=== PATIENT | male | born 1990 | race African-American/Black ===

== ENCOUNTER 2016-04-28 16:25 | Emergency (ER) | payer SELFPAY ==
[~2016-04-28] VITALS: Ht 175.3 cm; Wt 135.0 kg
[~2016-04-28 16:25] MED LIST: ALBU6.7H INH; ULTR50TA PO; ZOFR4TAB3 SL
[2016-04-28 16:29] VITALS: BP 138/84; PULSE 104; RESP 18; TEMP 98; O2SAT 96
[2016-04-28] MEDS ORDERED: ALBU0.08 NEB (17:03)
[2016-04-28] MEDS ORDERED: MUPI2OIN TOPICAL (17:11)
--- NOTE | 2016-04-28 17:11 | PD ---
HPI Chief Complaint: Injury Time Seen by Provider: 17:10 Travel History International Travel<30 days: No Contact w/Intl Traveler<30days: No Traveled to known affect area: No History of Present Illness HPI 26-year-old male with no significant medical history presents to emergency department for evaluation right great toe pain. Patient states that he removed a part of his ingrown toenail and the area has been painful since. No erythema or edema. Pain is only when he pushes on the area. No fever or chills. No other symptoms to report. PFSH Past Medical History Asthma: Yes Cardiovascular Problems: Yes (palpitations) Diminished Hearing: No Immunizations Current: Yes Tetanus Vaccination: < 5 Years Influenza Vaccination: No Past Surgical History Surgical History: No Previous Surgery Social History Alcohol Use: No Tobacco Use: No Substance Use: No Allergies-Medications (Allergen,Severity, Reaction): Coded Allergies: Tylenol (Verified Allergy, Severe, Hives, 04/28/16) Reported Meds & Prescriptions Reported Meds & Active Scripts Active Mupirocin Topical (Mupirocin) 2 % Oint 1 Applic TOPICAL BID Reported Albuterol Neb (Albuterol Sulfate) 2.5 Mg/3 Ml Neb 2.5 Mg NEB Q4HR NEB PRN Review of Systems Except as stated in HPI: all other systems reviewed are Neg Physical Exam Narrative GENERAL: Well-nourished, well-developed patient in no acute distress SKIN: Warm and dry. Without erythema or edema. Partially avulsed toenail of the right great toe on the lateral aspect. No erythema or edema. Area is tender to palpate. HEAD: Normocephalic. EYES: No scleral icterus. No injection or drainage. NECK: Supple, trachea midline. No JVD or lymphadenopathy. CARDIOVASCULAR: Regular rate and rhythm without murmurs, gallops, or rubs. MUSCULOSKELETAL: No cyanosis, or edema. Patient has full flexion extension of the affected toe. No ulcerations in sensation of the affected digit. Data Data Last Documented VS Vital Signs Date Time Temp Pulse Resp B/P Pulse Ox O2 Delivery O2 Flow Rate FiO2 04/28/16 16:59 98 18 99 04/28/16 16:29 98.0 138/84 Room Air MDM Medical Decision Making Medical Screen Exam Complete: Yes Emergency Medical Condition: Yes Medical Record Reviewed: Yes Differential Diagnosis Ingrown toenail versus avulsed toenail versus partially avulsed toenail versus cellulitis Narrative Course 26-year-old male presents to emergency department for evaluation right great toe pain. Patient has avulsed part of his ingrown toenail. The area does not appear to be infected. I counseled him on care. He'll be discharged and encouraged to follow-up with nuclear monitoring technician. He agrees to return immediately with any acute worsening symptoms. Diagnosis Primary Impression: Ingrown nail of great toe of right foot Referrals: [facility] Primary Care Physician Patient Instructions: General Instructions, Ingrown Nail (ED) Additional Instructions: Epson salts 62-3 times a day All over the nuclear monitoring technician Return immediately to the emergency department with any acute worsening of symptoms Med/Other Pt SpecificInfo: Prescription(s) given Scripts Mupirocin Topical 2 % Oint1 Applic TOPICAL BID #22 GM Ref 0 Prov:Donna Mccallum 04/28/16 Disposition: 01 DISCHARGE HOME Condition: Stable Donna Mccallum Apr 28, 2016 17:11
== END 2016-04-28 17:58 | disposition home or self-care (01) ==
LOC: NETRI 16:25
DX: L60.0 Ingrowing nail (principal); J45.909 Unspecified asthma, uncomplicated
CPT/HCPCS: 99283

== ENCOUNTER 2017-10-11 02:30 | Observation (INO) ==
--- NOTE | 2017-10-11 03:07 | ED ---
HPI General Chief Complaint: Chest Pain Stated Complaint: chest pain, sob Time Seen by Provider: 10/11/17 03:03 History of Present Illness HPI narrative: 27-year-old male presents to the emergency department by private transportation for complaint of sudden onset chest pain just prior to arrival to the emergency department. Initial pain was 10/10 intensity tight squeeze and nature associated with shortness of breath no sweats no nausea no vomiting and no referred neck jaw back shoulder arm pain. Patient denies abdominal pain. Patient states he used his albuterol rescue inhaler for his history of asthma and symptoms seemed to dissipate. Severe pain lasted less than 30 seconds. Patient states pain is currently 5-6/10 intensity and still slightly tight. Patient continues to deny any referred pain. Patient denies tobacco use substance use recent long distance travel. Patient states he was up and had just returned home from celebrating his brother's birthday when he noticed the symptoms. No prior history of similar chest pain. No family history of sudden or cardiac disease and patient did not have syncopal or near syncopal episode. Patient denies other concerns or complaints. Complete Quality Measures for STEMI Alert Patients Related Data Home Medications Medication Instructions Recorded Confirmed albuterol sulfate 2 puff INHALATION Q4-6H PRN 10/11/17 10/11/17 Allergies Allergy/AdvReac Type Severity Reaction Status Date / Time acetaminophen Allergy Severe Hives Unverified 11/17/16 00:55 Review of Systems Except as stated in HPI: all other systems reviewed are negative PMFSH Medical History Medical History Asthma (Acute) Surgical History Surgical History No history of previous surgery (Acute) Social History Social History Substance History: No History of Abuse Second Hand Smoke Exposure: No Smoking Status: Never smoker How Often Do You Have a Drink Containing Alcohol: Monthly or less Hx Recent Travel: No Recent Travel in [facility] within the Last 8 Weeks: No Recent Out of Country Travel within the Last 8 Weeks: No Immunization History Tetanus Immunization: Unsure Exam Narrative Exam Narrative: GENERAL: Well-developed well-nourished morbidly obese male in no acute distress no respiratory distress GCS 15 SKIN: Focused skin assessment warm/dry. HEAD: Atraumatic. Normocephalic. EYES: Pupils equal and round. No scleral icterus. No injection or drainage. ENT: No nasal bleeding or discharge. Mucous membranes pink and moist. NECK: Trachea midline. No JVD. CARDIOVASCULAR: Regular rate and rhythm. No murmur appreciated. Radial and dorsalis pedis pulses 2+ to palpation bilaterally RESPIRATORY: No accessory muscle use. Clear to auscultation. Breath sounds equal bilaterally. GASTROINTESTINAL: Abdomen soft, non-tender, nondistended. Hepatic and splenic margins not palpable. MUSCULOSKELETAL: No obvious deformities. No clubbing. No cyanosis. No edema. NEUROLOGICAL: Awake and alert. No obvious cranial nerve deficits. Motor grossly within normal limits. Normal speech. PSYCHIATRIC: Appropriate mood and affect; insight and judgment normal. Course Initial Documented Vital Signs Temperature 98.1 F 10/11/17 02:34 Pulse Rate 96 H 10/11/17 02:34 Respiratory Rate 18 10/11/17 02:34 Blood Pressure 151/69 H 10/11/17 02:34 Pulse Oximetry 99 10/11/17 02:34 Last Documented Vital Signs Temperature 98.1 F 10/11/17 02:34 Pulse Rate 105 H 10/11/17 11:17 Respiratory Rate 16 10/11/17 11:17 Blood Pressure 139/70 10/11/17 11:17 Pulse Oximetry 96 10/11/17 11:18 Medical Decision Making [facility] Narrative Medical decision making narrative: 27-year-old male presents to the emergency department for complaint of chest pain associated with shortness of breath nonradiating without near syncope or syncopal episode with EKG that shows sinus tachycardia rate [address] septal changes with possible Brugada type pattern with coving Saddleback ST changes in V2 no reciprocal ST segment depression or T-wave inversion. Patient's EKG discussed with on-call turntable engineer concurs this is not a STEMI. Patient placed on cardiac exercise specialist with continuous pulse oximetry IV access obtained specimens collected and sent for resulting patient administered aspirin 162 mg administered to be chewed and sublingual nitroglycerin 1. Differential Diagnosis Differential Diagnosis: Chest pain atypical chest pain PE ACS MA Medical Records Medical records reviewed: Yes I reviewed the patient's medical records. Lab Data Result diagrams: 10/11/17 03:00 10/11/17 03:00 Lab Results 10/11/17 10/11/17 10/11/17 Range/Units 03:00 03:00 03:00 WBC 11.6 H (4.0-11.0) th/mm3 RBC 4.91 (4.50-5.90) mil/mm3 Hgb 15.3 (13.0-17.0) gm/dL Hct 43.6 (39.0-51.0) % MCV 88.7 (80.0-100.0) fL MCH 31.2 (27.0-34.0) pg MCHC 35.2 (32.0-36.0) % RDW 13.6 (11.6-17.2) % Plt Count 255 (150-450) th/mm3 MPV 7.4 (7.0-11.0) fL Prelim Diff (Auto) Slide review pending Neut % (Auto) 34.8 (16.0-70.0) % Lymph % (Auto) 53.4 H (9.0-44.0) % Upson % (Auto) 7.0 (0.0-8.0) % Eos % (Auto) 3.8 (0.0-4.0) % Baso % (Auto) 1.0 (0.0-2.0) % Neut # (Auto) 4.0 (1.8-7.7) th/mm3 Lymph # (Auto) 6.2 H (1.0-4.8) th/mm3 Upson # (Auto) 0.8 (0.0-0.9) th/mm3 Eos # (Auto) 0.4 (0.0-0.4) th/mm3 Baso # (Auto) 0.1 (0.0-0.2) th/mm3 WBC Differential Manual diff final Seg Neuts % (Manual) 42 (16-70) % Lymphocytes % (Manual) 46 H (9-44) % Monocytes % (Manual) 8 (0-8) % Eosinophils % (Manual) 4 (0-4) % Abs Neuts (Manual) 4.9 (1.8-7.7) th/mm3 Differential Comment . Platelet Estimate Normal (Normal) Platelet Morphology Normal (Normal) RBC Morphology Normal (Normal) PT 10.7 (9.8-11.6) sec INR 1.1 Ratio APTT 25.8 (24.3-30.1) sec Sodium 140 (136-145) meq/L Potassium 3.3 L (3.5-5.1) meq/L Chloride 103 (98-107) meq/L Carbon Dioxide 28.6 (21.0-32.0) meq/L Anion Gap 8 (5-15) meq/L BUN 8 (7-18) mg/dL Creatinine 1.26 (0.60-1.30) mg/dL Estimated GFR 83 L (>89) mL/min Random Glucose 126 H (74-106) mg/dL Calcium 8.5 (8.5-10.1) mg/dL Magnesium 2.0 (1.5-2.5) mg/dL Total Creatine Kinase 428 H (39-308) U/L CK-MB (CK-2) 1.0 (0.5-3.6) ng/mL CK-MB (CK-2) % 0.2 (0.0-4.0) % Troponin I Less than 0.02 L (0.02-0.05) ng/mL 10/11/17 Range/Units 06:20 WBC (4.0-11.0) th/mm3 RBC (4.50-5.90) mil/mm3 Hgb (13.0-17.0) gm/dL Hct (39.0-51.0) % MCV (80.0-100.0) fL MCH (27.0-34.0) pg MCHC (32.0-36.0) % RDW (11.6-17.2) % Plt Count (150-450) th/mm3 MPV (7.0-11.0) fL Prelim Diff (Auto) Neut % (Auto) (16.0-70.0) % Lymph % (Auto) (9.0-44.0) % Upson % (Auto) (0.0-8.0) % Eos % (Auto) (0.0-4.0) % Baso % (Auto) (0.0-2.0) % Neut # (Auto) (1.8-7.7) th/mm3 Lymph # (Auto) (1.0-4.8) th/mm3 Upson # (Auto) (0.0-0.9) th/mm3 Eos # (Auto) (0.0-0.4) th/mm3 Baso # (Auto) (0.0-0.2) th/mm3 WBC Differential Seg Neuts % (Manual) (16-70) % Lymphocytes % (Manual) (9-44) % Monocytes % (Manual) (0-8) % Eosinophils % (Manual) (0-4) % Abs Neuts (Manual) (1.8-7.7) th/mm3 Differential Comment Platelet Estimate (Normal) Platelet Morphology (Normal) RBC Morphology (Normal) PT (9.8-11.6) sec INR Ratio APTT (24.3-30.1) sec Sodium (136-145) meq/L Potassium (3.5-5.1) meq/L Chloride (98-107) meq/L Carbon Dioxide (21.0-32.0) meq/L Anion Gap (5-15) meq/L BUN (7-18) mg/dL Creatinine (0.60-1.30) mg/dL Estimated GFR (>89) mL/min Random Glucose (74-106) mg/dL Calcium (8.5-10.1) mg/dL Magnesium (1.5-2.5) mg/dL Total Creatine Kinase 372 H (39-308) U/L CK-MB (CK-2) 1.0 (0.5-3.6) ng/mL CK-MB (CK-2) % 0.3 (0.0-4.0) % Troponin I Less than 0.02 L (0.02-0.05) ng/mL Imaging Data Radiologist's impression: ITS Impressions Chest X-Ray 10/11/17 02:56 CONCLUSION: 1. No acute cardiopulmonary disease. ECG Data Interpretation: EKG sinus tachycardia rate 105 Discharge Plan Discharge Disposition Patient Disposition: 01 Discharge Home Discharge Condition Condition: Good Discharge Order Discharge Orders: Discharge Order (Routine); Ordered 10/11/17 Ordered By: Rosa Ya Discharge Details Anticipated Discharge Date: 10/11/17 Physicians Team ED Provider: Kya Cisneros Primary Care Provider: Primary Care Vannesa Espinoza Attending Provider: Tayo Lopez Status ED Status: Left Department Discharge Information Discharge Date/Time: 10/11/17 11:45
[2017-10-11 03:14] LABS: Baso # (Auto) 0.1 th/mm3 (0.0-0.2); Eos # (Auto) 0.4 th/mm3 (0.0-0.4); Eos % (Auto) 3.8 % (0.0-4.0); Hematocrit 43.6 % (39.0-51.0); Hemoglobin 15.3 gm/dL (13.0-17.0); Lymph # (Auto) 6.2 th/mm3 (1.0-4.8); Lymph % (Auto) 53.4 % (9.0-44.0); Mean Corpuscular HGB Conc 35.2 % (32.0-36.0); Mean Corpuscular Hemoglobin 31.2 pg (27.0-34.0); Mean Corpuscular Volume 88.7 fL (80.0-100.0); Mean Platelet Volume 7.4 fL (7.0-11.0); Mono # (Auto) 0.8 th/mm3 (0.0-0.9); Neut % (Auto) 34.8 % (16.0-70.0); Platelet Count 255 th/mm3 (150-450); Red Blood Count 4.91 mil/mm3 (4.50-5.90); Red Cell Distribution Width 13.6 % (11.6-17.2); White Blood Count 11.6 th/mm3 (4.0-11.0)
[2017-10-11 03:25] LABS: Activated Partial Thrombo Time 25.8 sec (24.3-30.1); INR 1.1 Ratio; Prothrombin Time 10.7 sec (9.8-11.6)
[2017-10-11 03:34] LABS: Anion Gap 8 meq/L (5-15); Blood Urea Nitrogen 8 mg/dL (7-18); Calcium 8.5 mg/dL (8.5-10.1); Carbon Dioxide 28.6 meq/L (21.0-32.0); Chloride 103 meq/L (98-107); Creatine Kinase 428 U/L (39-308); Glomerular Filtration Rate 83 mL/min (>89); Glucose,Random 126 mg/dL (74-106); Sodium 140 meq/L (136-145)
[2017-10-11 03:35] LABS: Potassium 3.3 meq/L (3.5-5.1)
[2017-10-11 03:47] LABS: CKMB Percent 0.2 % (0.0-4.0)
[2017-10-11 04:04] LABS: Eosinophils 4 % (0-4); Lymphocytes 46 % (9-44); Monocytes 8 % (0-8); Platelet Estimate Normal (Normal)
[2017-10-11 04:05] LABS: Platelet Morphology Normal (Normal); RBC Morphology Normal (Normal)
--- NOTE | 2017-10-11 04:10 | XR ---
EXAM DATE: 10/11/2017 3:47 AM EDT AGE/SEX: 27 years / Male INDICATIONS: Short of breath. CLINICAL DATA: This is the patient's initial encounter. Patient reports that signs and symptoms have been present for 1 day and indicates a pain score of 3/10. MEDICAL/SURGICAL HISTORY: None. None. COMPARISON: [facility] – [place], CHEST SINGLE AP, 07/25/2014. . FINDINGS: A single AP view of the chest demonstrates the lungs to be symmetrically aerated without evidence of mass, infiltrate or effusion. The cardiomediastinal contours are unremarkable. Osseous structures a re intact. CONCLUSION: 1. No acute cardiopulmonary disease. Electronically signed by: Grant Bhakta MD 10/11/2017 4:09 AM EDT
[2017-10-11 07:26] LABS: Creatine Kinase 372 U/L (39-308)
[2017-10-11 07:38] LABS: CKMB Percent 0.3 % (0.0-4.0)
--- NOTE | 2017-10-11 08:04 | P.HPCA ---
History of Present Illness Primary Care Physician: No Primary Care Physician Chief Complaint: Chest pain History of Present Illness: 27-year-old male history of asthma presents emergency room for further evaluation of chest pain and dyspnea. Onset public relations account executive. Location substernal. Characterized as squeezing and tightness. No radiation. No associated symptoms of nausea, vomiting, or dyspnea. Duration 30 seconds. Hurt to take a deep breath, felt short of breath. No precipitating or relieving factors. Denies similar pain in the past. Does not remind him of past asthma episodes. Asthma well-controlled rarely requiring albuterol rescue inhaler. Since initial episode no further chest discomfort or dyspnea no recent illness. No family history early onset cardiovascular disease. Non- smoker. - Diagnosis (1) Atypical chest pain Inpatient Certification: I certify that the inpatient services were ordered in accordance with Medicare regulations governing the order. This includes certification that hospital inpatient services are reasonable and necessary and in the case of services not specified as inpatient-only under 42 CFR 419.22(n), that they are appropriately provided as inpatient services in accordance to with the 2-midnight benchmark under 43 CFR 412.3(e) Estimated Total Length of Stay (Days): 1 Plans for Post Hospital Care: Home Review of Systems All other systems reviewed negative except as stated in HPI PMFSH - History History Provided By: Patient - Medical History Medical History: Medical History (Last Updated 10/11/17 @ 02:35 by Mathew Bradley) Asthma - Surgical History Surgical History: Surgical History (Last Updated 10/11/17 @ 02:36 by Mathew Bradley) No history of previous surgery - Tobacco History Second Hand Smoke Exposure: No Tobacco Use In Past 30 Days: No Smoking Status: Never smoker - Alcohol History How Often Do You Have a Drink Containing Alcohol: Monthly or less - Substance Use History Substance History: No History of Abuse - Travel History History of Recent Travel: No Recent Travel in the [place] Within the Last 8 Weeks: No Recent Travel Out of the Country Within the Last 8 Weeks: No - Immunization History Tetanus Immunization: Unsure Medications and Allergies Active Medications: Active Medications Aspirin (Aspirin) 325 mg PO DAILY DEANA Nitroglycerin (Nitrostat Sl) 0.4 mg SL Q5M PRN PRN Reason: CHEST PAIN Sodium Chloride (Ns Flush) 2 ml IV.FLUSH UNSCH PRN PRN Reason: FLUSH AFTER USING IV ACCESS Sodium Chloride (Ns Flush) 2 ml IV.FLUSH BID DEANA Sodium Chloride (Ns Flush) 2 ml IV.FLUSH PRN PRN PRN Reason: FLUSH AFTER USING IV ACCESS Allergies Allergy/AdvReac Type Severity Reaction Status Date / Time acetaminophen Allergy Severe Hives Unverified 11/17/16 00:55 Home Medications Medication Instructions Recorded Confirmed Type albuterol sulfate 2 puff INHALATION Q4-6H PRN 10/11/17 10/11/17 History Exam Vital signs: Vital Signs 10/11/17 02:34 10/11/17 02:36 10/11/17 03:18 Temperature 98.1 F Pulse Rate 96 H 90 Respiratory Rate 18 15 Blood Pressure 151/69 H 140/82 Pulse Oximetry 99 98 95 Intake & Output 10/10/17 10/11/17 10/11/17 18:59 06:59 18:59 Weight 127 kg Narrative: 27-year-old pleasant, obese male in no acute distress. Sleeping upon entering room, easily awakens from sleep. - Constitutional no acute distress, cooperative - Routine HEENT Exam Head: Present: normocephalic, atraumatic - Routine Chest/Breast/Axilla Exam Comments: Chest wall nontender with palpation. - Routine Respiratory Exam Present: CTA bilaterally - Routine Cardiovascular Exam Present: RRR. Absent: murmur, gallop, rubs - Routine Abdominal Exam Present: soft, normoactive bowel sounds - Routine Skin Exam Present: intact, dry, warm, normal turgor - Routine Neurological Exam Present: alert, oriented X3, CN II-XII intact, moving all extremities, normal tone, normal speech Results 10/11/17 03:00 10/11/17 03:00 Cardiac Enzymes 10/11/17 10/11/17 Range/Units 03:00 06:20 CK-MB (CK-2) 1.0 1.0 (0.5-3.6) ng/mL Troponin I Less than 0.02 L Less than 0.02 L (0.02-0.05) ng/mL Coagulation 10/11/17 Range/Units 03:00 PT 10.7 (9.8-11.6) sec APTT 25.8 (24.3-30.1) sec CBC 10/11/17 Range/Units 03:00 WBC 11.6 H (4.0-11.0) th/mm3 RBC 4.91 (4.50-5.90) mil/mm3 Hgb 15.3 (13.0-17.0) gm/dL Hct 43.6 (39.0-51.0) % Plt Count 255 (150-450) th/mm3 Neut # (Auto) 4.0 (1.8-7.7) th/mm3 Lymph # (Auto) 6.2 H (1.0-4.8) th/mm3 Morris # (Auto) 0.8 (0.0-0.9) th/mm3 Eos # (Auto) 0.4 (0.0-0.4) th/mm3 Baso # (Auto) 0.1 (0.0-0.2) th/mm3 Comprehensive Metabolic Panel 10/11/17 Range/Units 03:00 Sodium 140 (136-145) meq/L Potassium 3.3 L (3.5-5.1) meq/L Chloride 103 (98-107) meq/L Carbon Dioxide 28.6 (21.0-32.0) meq/L BUN 8 (7-18) mg/dL Creatinine 1.26 (0.60-1.30) mg/dL Calcium 8.5 (8.5-10.1) mg/dL Intake and Output 10/10/17 10/11/17 10/11/17 22:59 06:59 14:59 Other: Weight 127 kg EKG interpretations - EKG EKG results cardiology: WNL, sinus rhythm, normal axis, normal QRS - Dysrhythmias Sinus rhythms and dysrhythmias: sinus tachycardia (mild st elevation lead V2) Caprini VTE Risk Assessment Caprini VTE Risk Assessment: No/Low Risk (score <= 1) Caprini Risk Assessment Model: Point Value = 1 Point Value = 2 Point Value = 3 Point Value = 5 Age 41-60 Minor surgery BMI > 25 kg/m2 Swollen legs Varicose veins or History of unexplained or recurrent spontaneous Oral contraceptives or hormone replacement Sepsis (< 1 month) Serious lung disease, including pneumonia (< 1 month) Abnormal pulmonary function Acute myocardial infarction Congestive heart failure (< 1 month) History of inflammatory bowel disease Medical patient at bed rest Age 61-74 Arthroscopic surgery Major open surgery (> 45 min) Laparoscopic surgery (> 45 min) Malignancy Confined to bed (> 72 hours) Immobilizing plaster cast Central venous access Age >= 75 History of VTE Family history of VTE Factor V Leiden Prothrombin [id number] Lupus anticoagulant Anticardiolipin antibodies Elevated serum homocysteine Heparin-induced thrombocytopenia Other congenital or acquired thrombophilia Stroke (< 1 month) Elective arthroplasty Hip, pelvis, or leg fracture Acute spinal cord injury (< 1 month) Prophylaxis Regimen: Total Risk Factor Score Risk Level Prophylaxis Regimen 0-1 Low Early ambulation 2 Moderate Order ONE of the following: *Sequential Compression Device (SCD) *Heparin 5000 units SQ BID 3-4 Higher Order ONE of the following medications: *Heparin 5000 units SQ TID *Enoxaparin/Lovenox 40 mg SQ daily (WT < 150 kg, CrCl > 30 mL/min) *Enoxaparin/Lovenox 30 mg SQ daily (WT < 150 kg, CrCl > 10-29 mL/min) *Enoxaparin/Lovenox 30 mg SQ BID (WT < 150 kg, CrCl > 30 mL/min) AND/OR *Sequential Compression Device (SCD) 5 or more Highest Order ONE of the following medications: *Heparin 5000 units SQ TID (Preferred with Epidurals) *Enoxaparin/Lovenox 40 mg SQ daily (WT < 150 kg, CrCl > 30 mL/min) *Enoxaparin/Lovenox 30 mg SQ daily (WT < 150 kg, CrCl > 10-29 mL/min) *Enoxaparin/Lovenox 30 mg SQ BID (WT < 150 kg, CrCl > 30 mL/min) AND *Sequential Compression Device (SCD) Assessment and Plan - Assessment (1) Atypical chest pain Code(s): R07.89 - Other chest pain Status: Acute Onset Date: ~10/11/17 Plan: Admitted to chest pain center. Seen and evaluated by Dr. Tayo Lopez. EKGs reviewed. Home with follow-up with PCP. Patient agreeable to plan of care.
[2017-10-11] MEDS ORDERED: Aspirin 325 MG Tablet PO SCH (09:00)
--- NOTE | 2017-10-12 08:49 | ECG ---
Date Performed: 10/11/2017 Time Performed: 02:43:30 PTAGE: 27 years EKG: SINUS TACHYCARDIA NO PREVIOUS TRACING DOCTOR: Tayo Lopez Interpretating Date/Time 10/12/2017 08:48:12
--- NOTE | 2017-10-12 08:49 | ECG ---
Date Performed: 10/11/2017 Time Performed: 06:23:51 PTAGE: 27 years EKG: Sinus rhythm BORDERLINE LEFT AXIS DEVIATION BORDERLINE ECG PREVIOUS TRACING : 10/11/2017 02.43 Since previous tracing, no significant change noted DOCTOR: Tayo Lopez Interpretating Date/Time 10/12/2017 08:47:20
--- NOTE | 2017-10-12 08:51 | TR ---
Date Performed: 10/11/2017 Time Performed: 10:27:45 DOCTOR: Tayo Lopez DRUG LIST: CLINICAL HISTORY: REASON FOR TEST: CHEST PAIN REASON FOR ENDING: OBSERVATION: CONCLUSION: Tony protocol completed. Stopped sec to exceeding target heart rate and leg fatigue . Maximum IL=909 Max HR Achieved=91.0% Maximum IY=524/72 Total Exercise Time=7:01. No reprod chest di scomfort. Normal bp response. Upsloping st segments. Good exercise tolerance. Recovery quick and unre markable. COMMENTS: Patient exercised using the Tony protocol. No electrocardiographic changes were seen to suggest ischemia. Hemodynamic response to exercise was normal. No significant arrhythmia was prese nt.
== END 2017-10-11 11:46 | disposition home or self-care (01) ==
LOC: NEDA 02:30 → NEPC 02:30 → NEDA 11:45
PROVIDERS: ADMIT Internal Medicine Cardiovascular Disease; ATTEND Internal Medicine Cardiovascular Disease
DX: R55 Syncope and collapse; R07.89 Other chest pain; J45.909 Unspecified asthma, uncomplicated; E66.01 Morbid (severe) obesity due to excess calories; R94.31 Abnormal electrocardiogram [ECG] [EKG]; R00.0 Tachycardia, unspecified; R06.02 Shortness of breath